=== PATIENT | female | born 1970 | race Caucasian/White ===

== ENCOUNTER → 2017-12-31 | Outpatient (CLI) | payer OTHER ==
[2015-10-30 17:20] VITALS: BP 149/69
[~2017-12-31] MED LIST: CETI10TA22 PO; HYDR-971 PO; IBUP800T19 PO; KETO10TA PO; METH4TAB PO; ONDA4TAB7 PO; PRED50TA PO
--- NOTE | 2017-12-31 12:56 | RAD ---
Two-view left wrist study Clinical indications: Left wrist pain. No known injury. Findings: No acute fracture or dislocation or osteolytic process is seen. Small marginal cysts or erosions of the medial aspect of the hamate bone and the proximal fifth metacarpal bone involving the fifth carpal metacarpal joint is seen. IMPRESSION: No acute fracture. Possible erosive arthropathy of the fifth carpal metacarpal joint. Clinical correlation is recommended..
== END | disposition home or self-care (01) ==
LOC: PMG 08:43
PROVIDERS: ATTEND Physician Assistant
DX: M25.532 Pain in left wrist (principal)
CPT/HCPCS: 73100

== ENCOUNTER 2018-06-26 12:02 | Emergency (ER) | payer OTHER ==
[~2018-06-26] VITALS: Ht 160 cm; Wt 63.5 kg
[2018-06-26 13:02] VITALS: BP 187/97
--- NOTE | 2018-06-26 13:16 | ED.ADGEN ---
Past History Past Medical History: Other Past Surgical History: Lumbar Laminectomy, Tubal ligation Alcohol Use: Occasionally Drug Use: None Adult General Chief Complaint Chief Complaint low back pain HPI HPI Patient is a 48-year-old female with history of prior back surgery who presents with sharp, intermittent lancinating, lower lumbar paravertebral pain. pain is worse with palpation and leg movement. No motor weakness or sensation. Denies history of fall or trauma. No bladder or bowel incontinence. No other acute symptoms or complaints. [] Review of Systems Review of Systems Review symptoms as per history of present illness. All other review symptoms are negative. All other systems were reviewed and found to be within normal limits, except as documented in this note. Allergies Allergies Allergies Coded Allergies Type Severity Reaction Last Updated Verified Penicillins Allergy Unknown THROAT CLOSES 09/20/15 Yes Physical Exam Physical Exam Constitutional: Well developed, well nourished, no acute distress, non-toxic appearance. [] HENT: Normocephalic, atraumatic, bilateral external ears normal, oropharynx moist, nose normal. [] Eyes: PERRLA, EOMI, conjunctiva normal, no discharge. [] Back: Back, right lower lumbar pain, tenderness, reproduces with palpation and rotation. [] Extremities: No tenderness, no edema. [] Neurologic: Alert and oriented X 3, lower extremities, no motor weakness or loss of sensation, reflexes 2+ and symmetric.. [] Psychologic: Affect normal, judgement normal, mood normal. [] EKG EKG [] Radiology/Procedures Radiology/Procedures [] Course & Med Decision Making Course & Med Decision Making Pertinent Labs and Imaging studies reviewed. (See chart for details) [Acute pain management declined in the emergency department. Patient prefers to follow-up with PCP for further management.] Final Impression Final Impression [#1 acute lumbar back pain] Dragon Disclaimer Dragon Disclaimer This electronic medical record was generated, in whole or in part, using a voice recognition dictation system. ARASH COOK DO Jun 26, 2018 13:16
== END 2018-06-26 13:02 | disposition home or self-care (01) ==
LOC: ER 12:02
DX: M54.5 Low back pain (principal); Z98.890 Other specified postprocedural states; Z88.0 Allergy status to penicillin
CPT/HCPCS: 99283

== ENCOUNTER → 2020-09-26 | Outpatient (CLI) | payer OTHER ==
[~2020-09-26] MED LIST changes: -CETI10TA22 PO; +CETI10TA74 PO; +HYDR-3165 PO; -HYDR-971 PO
--- NOTE | 2020-09-27 13:56 | RAD ---
DATE: 09/26/2020 9:34 AM EXAM: DIGITAL SCREEN BILAT W/CAD HISTORY: Screening. New baseline COMPARISON: None available. Bilateral full field craniocaudal and mediolateral oblique images were obtained using digital technique. This study was interpreted with the benefit of Computerized Aided Detection (CAD). FINDINGS: Breast Density: HETERO The breast parenchyma Is heterogeneously dense, which could reduce sensitivity of mammography. Breast parenchyma level C No suspicious masses, microcalcifications or architectural distortion is present to suggest malignancy in either breast. The visualized axillae are unremarkable. IMPRESSION: No mammographic evidence of malignancy. BI-RADS CATEGORY: 1 NEGATIVE RECOMMENDED FOLLOW-UP: 12M 12 MONTH FOLLOW-UP Annual screening mammography is recommended, unless clinically indicated sooner based on symptoms or change in physical exam. PQRS compliance statement: Patient information was entered into a reminder system with a target due date for the next mammogram. Mammography is a sensitive method for finding small breast cancers, but it does not detect them all and is not a substitute for careful clinical examination. A negative mammogram does not negate a clinically suspicious finding and should not result in delay in biopsying a clinically suspicious abnormality. "Our facility is accredited by the [employer] Mammography Program."
== END ==
LOC: MAMMO 09:24
PROVIDERS: ATTEND Physician Assistant Medical
DX: Z12.31 Encounter for screening mammogram for malignant neoplasm of breast (principal)
CPT/HCPCS: 77067

== ENCOUNTER → 2020-10-14 | Outpatient (CLI) | payer OTHER ==
[~2020-10-14] MED LIST changes: +METH36TA5 PO
== END ==
LOC: LAB 09:00
PROVIDERS: ATTEND Nurse Anesthetist, Certified Registered
DX: Z01.812 Encounter for preprocedural laboratory examination (principal); Z20.828 Contact with and (suspected) exposure to other viral communicable diseases
CPT/HCPCS: U0003

== ENCOUNTER → 2020-10-18 | Day surgery (SDC) | payer OTHER ==
[~2020-10-18] MED LIST changes: +IPRATRPIUM/ALBUTEROL 0.5/2.5MG 3 ML NEBU. NEB PRN; +IV RINGERS SOLUTION,LACTATED 1,000 ML IV SCH; +MIDAZOLAM HCL PF 2 MG/2 ML VIAL. IV ONE; +ONDANSETRON PF 4 MG/2 ML VIAL. IV PRN; +PROPOFOL 10,000 MCG/ML (20ML) VIAL IV ONE
[2020-10-18 12:37] VITALS: BP 150/76
== END | disposition home or self-care (01) ==
LOC: SURG 11:01
PROVIDERS: ATTEND Internal Medicine Gastroenterology
DX: Z12.11 Encounter for screening for malignant neoplasm of colon (principal); K57.30 Diverticulosis of large intestine without perforation or abscess without bleeding; K63.89 Other specified diseases of intestine; G47.00 Insomnia, unspecified; I10 Essential (primary) hypertension; F98.8 Other specified behavioral and emotional disorders with onset usually occurring in childhood and adolescence; Z98.51 Tubal ligation status; Z79.899 Other long term (current) drug therapy; Z98.890 Other specified postprocedural states; Z88.0 Allergy status to penicillin
CPT/HCPCS: 45378; J2704; J7120

== ENCOUNTER 2021-01-31 14:59 | Emergency (ER) | payer OTHER ==
[~2021-01-31] VITALS: Ht 160 cm; Wt 69.0 kg
[~2021-01-31 14:59] MED LIST changes: -IPRATRPIUM/ALBUTEROL 0.5/2.5MG 3 ML NEBU. NEB PRN; -IV RINGERS SOLUTION,LACTATED 1,000 ML IV SCH; -MIDAZOLAM HCL PF 2 MG/2 ML VIAL. IV ONE; -ONDANSETRON PF 4 MG/2 ML VIAL. IV PRN; -PROPOFOL 10,000 MCG/ML (20ML) VIAL IV ONE
--- NOTE | 2021-01-31 16:09 | EKG ---
[address] [address] Test Date: 2021-01-31 Test Time: 15:09:46 Pat Name: TRISTA VILLALOBOS Department: Room: Gender: F Cumulative Effects Analyst: MICHELLE : 1970 Requested By: MIRTA CÁRDENAS Order Number: [id number] Reading MD: Measurements Intervals [place] Rate: 67 P: ME: QRS: 38 QRSD: 88 T: 31 QT: 400 QTc: 426 Interpretive Statements IRREGULAR RHYTHM, NO P-WAVE FOUND OTHERWISE NORMAL ECG RI6.02 No previous ECG available for comparison
--- NOTE | 2021-01-31 16:29 | PHYS DOC ---
Past History Past Medical History: No Pertinent History, Other Past Surgical History: Lumbar Laminectomy, Tubal ligation, Other Alcohol Use: None Drug Use: None General Adult EDM: Chief Complaint: SHORTNESS OF BREATH HPI: HPI: Patient is a 51-year-old female who presents with shortness of breath after using her cricket this afternoon. Patient states that when she started using it is when she started feeling short of breath. Patient states she went outside a fracture and started feeling some tingling in her fingers. Patient decided to be seen in the emergency room she was worried if something were to happen she would be by herself. Denies chest pain. Review of Systems: Review of Systems: Constitutional: Denies fever or chills Eyes: Denies change in visual acuity HENT: Denies nasal congestion or sore throat Respiratory: Denies cough, reports shortness of breath Cardiovascular: Denies chest pain or edema GI: Denies abdominal pain, nausea, vomiting, bloody stools or diarrhea : Denies dysuria Musculoskeletal: Denies back pain or joint pain Integument: Denies rash Neurologic: Denies headache, focal weakness or sensory changes Endocrine: Denies polyuria or polydipsia Lymphatic: Denies swollen glands Psychiatric: Denies depression or anxiety Allergies: Allergies: Allergies Coded Allergies Type Severity Reaction Last Updated Verified Penicillins Allergy Unknown THROAT CLOSES 09/20/15 Yes Physical Exam: PE: Constitutional: Well developed, well nourished, no acute distress, non-toxic appearance. [] HENT: Normocephalic, atraumatic, bilateral external ears normal, oropharynx moist, no oral exudates, nose normal. [] Eyes: PERRLA, EOMI, conjunctiva normal, no discharge. [] Neck: Normal range of motion, no tenderness, supple, no stridor. [] Cardiovascular:Heart rate regular rhythm, no murmur [] Lungs & Thorax: Bilateral breath sounds clear to auscultation [] Abdomen: Bowel sounds normal, soft, no tenderness, no masses, no pulsatile masses. [] Skin: Warm, dry, no erythema, no rash. [] Back: No tenderness, no CVA tenderness. [] Extremities: No tenderness, no cyanosis, no clubbing, ROM intact, no edema. [] Neurologic: Alert and oriented X 3, normal motor function, normal sensory function, no focal deficits noted. [] Psychologic: Affect normal, judgement normal, mood normal. [] Current Patient Data: Vital Signs: Vital Signs Date Time Temp Pulse Resp B/P (MAP) Pulse Ox O2 Delivery O2 Flow Rate FiO2 01/31/21 15:05 97.9 75 20 176/87 (116) 100 EKG: EKG: [] Radiology/Procedures: Radiology/Procedures: [] Heart Score: C/O Chest Pain: No Risk Factors: Risk Factors: DM, Current or recent (<one month) smoker, HTN, HLP, family history of CAD, obesity. Risk Scores: Score 0 - 3: 2.5% MACE over next 6 weeks - Discharge Home Score 4 - 6: 20.3% MACE over next 6 weeks - Admit for Clinical Observation Score 7 - 10: 72.7% MACE over next 6 weeks - Early Invasive Strategies Course & Med Decision Making: Course & Med Decision Making Pertinent Labs and Imaging studies reviewed. (See chart for details) [] Patient is hemodynamically stable. O2 100% on room air. EKG heart rate 67 bpm. Normal sinus rhythm. Patient states that her symptoms have resolved and denies shortness of breath. Patient denies any pain or other complaints. Patient states "I do not want to run anymore test I feel fine". "I will make an appointment with Herlinda and see her in the morning". Patient instructed to return to the emergency room with worsening symptoms or concerns. Patient is able to ambulate at the emergency room on her own. Dragon Disclaimer: Cued Disclaimer: This electronic medical record was generated, in whole or in part, using a voice recognition dictation system. Departure Departure: Impression: Primary Impression: SOB (shortness of breath) Disposition: 01 DC HOME SELF CARE/HOMELESS Condition: GOOD Referrals: HERLINDA RESTREPO (PCP) Patient Instructions: Shortness of Breath, [id number] Additional Instructions: You are seen in the emergency room for shortness of breath. Your EKG was negative for any acute abnormalities. Your symptoms resolved once in the emergency room. Your initial blood pressure was 176/87. Your second blood pressure was 160/97. Please follow-up with your PCP in the morning for further evaluation. Return to the emergency room with worsening symptoms or concerns. EMERGENCY DEPARTMENT GENERAL DISCHARGE INSTRUCTIONS Thank you for coming to [facility] (ED) today and trusting us with you care. We trust that you had a positivie experience in our Emergency Department. If you wish to speak to the department management, you may call the director at [phone]. YOUR FOLLOW UP INSTRUCTIONS ARE FOLLOWS: 1. Do you have a private Doctor? If you do not have a private doctor, please ask for a resource list of physicians or clinics that may be able to assist you with follow up care. 2. The Emergency Physician has interpreted your x-rays. The X-Ray specialist will also review them. If there is a change in the findings, you will be notified in 48 hours when at all possible. 3. A lab test or culture has been done, your results will be reviewed and you will be notified if you need a change in treatment. ADDITIONAL INSTRUCTIONS AND INFORMATION: 1. Your care today has been supervised by a physician who is specially trained in emergency care. Many problems require more than one evaluation for a complete diagnosis and treatment. We recommend that you schedule your follow up appointment as recommended to ensure complete treatment of you illness or injury. If you are unable to obtain follow up care and continue to have a problem, or if your condition worsens, we recommend that you return to the ED. 2. We are not able to safely determine your condition over the phone nor are we able to give sound medical advice over the phone. For these safety reasons, if you call for medical advice we will ask you to come to the ED for further evaluation. 3. If you have any questions regarding these discharge instructions please call the ED at [phone]. SAFETY INFORMATION: In the interest of safety, wellness, and injury prevention; we encourage you to wear your sealbelt, if you smoke; quite smoking, and we encourage family to use a protective helmet for bicycling and other sporting events that present an increased risk for head injury. IF YOUR SYMPTOMS WORSEN OR NEW SYMPTOMS DEVELOP, OR YOU HAVE CONCERNS ABOUT YOUR CONDITION; OR IF YOUR CONDITION WORSENS WHILE YOU ARE WAITING FOR YOUR FOLLOW UP APPOINTMENT; EITHER CONTACT YOUR PRIMARY CARE DOCTOR, THE PHYSICIAN WHOSE NAME AND NUMBER YOU WERE GIVEN, OR RETURN TO THE ED IMMEDIATELY. MIRTA CÁRDENAS APRN Jan 31, 2021 16:29
[2021-01-31 17:00] VITALS: BP 164/81
== END 2021-01-31 17:05 | disposition home or self-care (01) ==
LOC: ER 14:59
DX: R06.02 Shortness of breath (principal); R20.2 Paresthesia of skin; Z98.890 Other specified postprocedural states; Z98.51 Tubal ligation status; Z88.0 Allergy status to penicillin
CPT/HCPCS: 93005; 99283

== ENCOUNTER → 2021-03-15 | Outpatient (CLI) | payer OTHER ==
--- NOTE | 2021-03-15 15:56 | RAD ---
EXAM: PA and Lateral Views of the Chest DATE: 03/15/2021 8:33 AM INDICATION: Reason: / Spl. Instructions: / History: COMPARISON: No Prior FINDINGS: The heart is not enlarged. Mediastinal and hilar contours are normal. No focal parenchymal airspace opacity. No pleural effusion or pneumothorax. IMPRESSION: 1. No radiographic evidence for acute cardiopulmonary process. Electronically signed by: Keny Darden MD (03/15/2021 3:54 PM) [id number]
== END ==
LOC: RAD 08:23
PROVIDERS: ATTEND Physician Assistant Medical
DX: R05 Cough (principal)
CPT/HCPCS: 71046

== ENCOUNTER 2022-01-04 12:56 | Emergency (ER) | payer OTHER ==
[~2022-01-04] VITALS: Ht 160 cm; Wt 69.0 kg
[2022-01-04] MEDS ORDERED: ORPHENADRINE CITRATE 60 MG/2 ML VIAL. IV ONE (13:30)
[2022-01-04] MEDS ORDERED: ONDANSETRON PF 4 MG/2 ML VIAL. IVP ONE (13:30)
[2022-01-04] MEDS ORDERED: MORPHINE SULFATE 4 MG/ML DISP.SYRIN. IV ONE (13:30)
--- NOTE | 2022-01-04 13:32 | PHYS DOC ---
Past History Past Medical History: No Pertinent History, Other Additional Past Medical Histor: chronic back pain, ADD Past Surgical History: Lumbar Laminectomy, Tubal ligation, Other Alcohol Use: Occasionally Drug Use: None General Adult EDM: Chief Complaint: BACK PAIN OR INJURY HPI: HPI: 51-year-old female presents via ambulance with right-sided low back/hip pain. The patient fell in the shower 2 days ago. She had pain in the right hip and low back area yesterday but was able to walk. Today the pain is worse and if she puts any weight on her right leg it makes her right low back and hip hurt severely. She denies any numbness, tingling, or altered sensation in her legs. She has had 3 low back surgeries where she has had disc revision of some kind. She does not have any plates or hardware. She denies any other injuries or complaints at this time. Review of Systems: Review of Systems: Constitutional: Denies fever or chills Eyes: Denies change in visual acuity HENT: Denies nasal congestion or sore throat Respiratory: Denies cough or shortness of breath Cardiovascular: Denies chest pain or edema GI: Denies abdominal pain, nausea, vomiting, bloody stools or diarrhea : Denies dysuria Musculoskeletal: Low/right hip pain Integument: Denies rash Neurologic: Denies headache, focal weakness or sensory changes Endocrine: Denies polyuria or polydipsia Lymphatic: Denies swollen glands Psychiatric: Denies depression or anxiety Allergies: Allergies: Allergies Coded Allergies Type Severity Reaction Last Updated Verified Penicillins Allergy Unknown THROAT CLOSES 09/20/15 Yes Physical Exam: PE: Constitutional: Well developed, well nourished, no acute distress, non-toxic appearance. [] HENT: Normocephalic, atraumatic, bilateral external ears normal, oropharynx moist, no oral exudates, nose normal. [] Eyes: PERRLA, EOMI, conjunctiva normal, no discharge. [] Neck: Normal range of motion, no tenderness, supple, no stridor. [] Cardiovascular: Heart rate regular rhythm, no murmur [] Lungs & Thorax: Bilateral breath sounds clear to auscultation [] Abdomen: Bowel sounds normal, soft, no tenderness, no masses, no pulsatile masses. [] Skin: Warm, dry, no erythema, no rash. [] Back: Tenderness over the right sacroiliac joint and right paraspinal lumbar muscles [] Extremities: No tenderness, no cyanosis, no clubbing, ROM intact, no edema. [] Neurologic: Alert and oriented X 3, normal motor function, normal sensory function, no focal deficits noted. [] Psychologic: Affect normal, judgement normal, mood normal. [] Current Patient Data: Vital Signs: Vital Signs Date Time Temp Pulse Resp B/P (MAP) Pulse Ox O2 Delivery O2 Flow Rate FiO2 01/04/22 13:05 98.6 74 18 143/94 (110) 100 Room Air EKG: EKG: [] Radiology/Procedures: Radiology/Procedures: [] Impressions: EXAM: Pelvis and right hip, 3 views. HISTORY: Pain. COMPARISON: None. FINDINGS: A frontal view of the pelvis and 2 views of the right hip are obtaine d. There is no fracture, dislocation or subluxation. There is mild degenerative subchondral cyst formation and marginal spurring involving the acetabula and femoral heads. There is degenerative change at the lumbosacral junction. IMPRESSION: Mild bilateral hip osteoarthritis. Electronically signed by: Bertha Haro MD (01/04/2022 2:38 PM) [id number] DICTATED AND SIGNED BY: BERTHA HARO MD DATE: 01/04/22 1437 CC: ARASH CHOWDARY DO; HERLINDA RESTREPO ~MTH0 0 Exam Date: 01/04/2022 1:39 PM XR LUMBAR SPINE 2-3V Indication: Reason: fall, hip/low back pain / Spl. Instructions: / History: . FINDINGS/ IMPRESSION: Anatomic alignment is maintained without spondylolisthesis. The vertebral body heights are maintained without evidence of compression fracture. Moderate disc space narrowing seen at L5-S1, with mild disc space narrowing at other levels. Small osteophytes and moderate facet joint arthropathy are seen at multiple levels. Degenerative changes are seen in the SI joints. The visualized soft tissues are within normal limits. Electronically signed by: Robinson Bynum MD (01/04/2022 2:48 PM) [id number] DICTATED AND SIGNED BY: ROBINSON BYNUM MD DATE: 01/04/22 1447 CC: ARASH CHOWDARY DO; HERLINDA RESTREPO ~MTH0 0 Heart Score: C/O Chest Pain: N/A Risk Factors: Risk Factors: DM, Current or recent (<one month) smoker, HTN, HLP, family history of CAD, obesity. Risk Scores: Score 0 - 3: 2.5% MACE over next 6 weeks - Discharge Home Score 4 - 6: 20.3% MACE over next 6 weeks - Admit for Clinical Observation Score 7 - 10: 72.7% MACE over next 6 weeks - Early Invasive Strategies Course & Med Decision Making: Course & Med Decision Making Pertinent Labs and Imaging studies reviewed. (See chart for details) The patient's x-rays are negative for acute findings or fracture. This appears to be sacroiliac joint pain. I have treated her with Norflex and pain medication in the emergency room. I will further treat her with steroids and discharged with a prescription for Flexeril and prednisone. She is stable for discharge at this time. [] Dragon Disclaimer: Dragon Disclaimer: This electronic medical record was generated, in whole or in part, using a voice recognition dictation system. Departure Departure: Impression: Primary Impression: Pain of right sacroiliac joint Disposition: HOME / SELF CARE / HOMELESS Condition: STABLE Referrals: HERLINDA RESTREPO (PCP) Patient Instructions: Sacroiliac Joint Dysfunction Scripts Prednisone (PREDNISONE) 50 Mg Tablet 1 TAB PO DAILY for sacroiliac pain, #5 TAB Prov: ARASH CHOWDARY DO 01/04/22 Hydrocodone/Acetaminophen (Hydrocodone-Acetamin 5-325 mg) 1 Each Tablet 1 EACH PO Q4-6HRS PRN for PAIN, #10 TAB Prov: ARASH CHOWDARY DO 01/04/22 Cyclobenzaprine Hcl (CYCLOBENZAPRINE HCL) 10 Mg Tablet 1 TAB PO TID PRN for MUSCLE SPASMS, #30 TAB Prov: ARASH CHOWDARY DO 01/04/22 ARASH CHOWDARY DO Jan 04, 2022 13:32
[2022-01-04 13:56] LABS: BASO % 1 % (0-3); EOS % 1 % (0-3); HEMATOCRIT 41.8 % (36.0-47.0); LYMPH # 1.4 x10^3/uL (1.0-4.8); LYMPH % 17 % (24-48); MEAN CORPUSCULAR HEMOGLOBIN 30 pg (25-35); MEAN CORPUSCULAR HGB CONC 34 g/dL (31-37); MEAN CORPUSCULAR VOLUME 90 fL (79-100); MONO % 13 % (0-9); NEUT # 5.6 x10^3uL (1.8-7.7); NEUT % 69 % (31-73); PLATELET COUNT 222 x10^3/uL (140-400); RED BLOOD COUNT 4.65 x10^6/uL (3.50-5.40); RED CELL DISTRIBUTION WIDTH 13.5 % (11.5-14.5); WHITE BLOOD COUNT 8.2 x10^3/uL (4.0-11.0)
[2022-01-04 14:04] LABS: CALCIUM 8.7 mg/dL (8.5-10.1); CREATININE 0.6 mg/dL (0.6-1.0); GFR 104.6; POTASSIUM 3.7 mmol/L (3.5-5.1)
[2022-01-04 14:10] LABS: ALBUMIN 3.5 g/dL (3.4-5.0); ALBUMIN/GLOBULIN RATIO 1.2 (1.0-1.7); TOTAL BILIRUBIN 0.5 mg/dL (0.2-1.0); TOTAL PROTEIN 6.4 g/dL (6.4-8.2)
--- NOTE | 2022-01-04 14:40 | RAD ---
EXAM: Pelvis and right hip, 3 views. HISTORY: Pain. COMPARISON: None. FINDINGS: A frontal view of the pelvis and 2 views of the right hip are obtained. There is no fractur e, dislocation or subluxation. There is mild degenerative subchondral cyst formation and marginal spu rring involving the acetabula and femoral heads. There is degenerative change at the lumbosacral junc tion. IMPRESSION: Mild bilateral hip osteoarthritis. Electronically signed by: Bertha Hunt MD (01/04/2022 2:38 PM) [id number]
--- NOTE | 2022-01-04 14:51 | RAD ---
Exam Date: 01/04/2022 1:39 PM XR LUMBAR SPINE 2-3V Indication: Reason: fall, hip/low back pain / Spl. Instructions: / History: . FINDINGS/ IMPRESSION: Anatomic alignment is maintained without spondylolisthesis. The vertebral body heights are maintaine d without evidence of compression fracture. Moderate disc space narrowing seen at L5-S1, with mild d isc space narrowing at other levels. Small osteophytes and moderate facet joint arthropathy are seen at multiple levels. Degenerative changes are seen in the SI joints. The visualized soft tissues are within normal limits. Electronically signed by: Stepan Bynum MD (01/04/2022 2:48 PM) [facility]EXTER
[2022-01-04 15:00] VITALS: BP 139/73
[2022-01-04 15:02] LABS: BACTERIA,URINE 0 /HPF (0-FEW); CLARITY,URINE CLEAR; COLOR,URINE YELLOW; GLUCOSE,URINE NEG (NEG); NITRITE,URINE NEG (NEG); SQUAMOUS EPITHELIAL CELL,UR FEW /LPF; UROBILINOGEN,URINE 0.2 mg/dL (0.2 mg/dL)
[2022-01-04] MEDS ORDERED: HYDR-2759 PO (15:29)
[2022-01-04] MEDS ORDERED: PRED50TA PO (15:29)
[2022-01-04] MEDS ORDERED: CYCL10TA19 PO (15:29)
[2022-01-04] MEDS ORDERED: methylPREDNISolone SOD SUCC PF 125 MG/2 ML VIAL. IV ONE (15:30)
== END 2022-01-04 16:01 | disposition home or self-care (01) ==
LOC: ER 12:56
DX: M53.3 Sacrococcygeal disorders, not elsewhere classified (principal); M54.59 Other low back pain; M25.551 Pain in right hip; G89.29 Other chronic pain; Z88.0 Allergy status to penicillin
CPT/HCPCS: 36415; 72100; 73502; 80053; 81001; 85025; 87086; 96374; 96375; 99284; J2270; J2360; J2405; J2930

== ENCOUNTER 2022-01-09 07:40 | Emergency (ER) | payer OTHER ==
[~2022-01-09] VITALS: Ht 160 cm; Wt 69.0 kg
[~2022-01-09 07:40] MED LIST changes: +CYCL10TA19 PO; +HYDR-2759 PO
[2022-01-09 07:49] VITALS: BP 126/75
--- NOTE | 2022-01-09 07:49 | PHYS DOC ---
Past History Past Medical History: No Pertinent History, Other Additional Past Medical Histor: chronic back pain, ADD Past Surgical History: Lumbar Laminectomy, Tubal ligation, Other Alcohol Use: Occasionally Drug Use: None General Adult EDM: Chief Complaint: LOWER BACK PAIN OR INJURY HPI: HPI: Patient is a 51 year old female who presents with low back pain. She was in this ER on the for the same. She states about a week ago she fell or slipped and strained her low back. She complained of pain in the right side of the low back and right SI joint area at that time. Today, she comes back to the ER with muscle spasm and severe pain on the left and some of her pain does radiate down the left leg. She has no weakness but does have severe pain when she tries to move the leg. No new injury. No fever. No saddle anesthesia. No difficulties with elimination. 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 Review of Systems: Review of Systems: Constitutional: Denies fever or chills Eyes: Denies change in visual acuity HENT: Denies nasal congestion or sore throat Respiratory: Denies cough or shortness of breath Cardiovascular: Denies chest pain or edema GI: Denies abdominal pain, nausea, vomiting, bloody stools or diarrhea : Denies dysuria Musculoskeletal: as documented in HPI Integument: Denies rash Neurologic: Denies headache, focal weakness or sensory changes Endocrine: Denies polyuria or polydipsia Lymphatic: Denies swollen glands Psychiatric: Denies depression or anxiety Allergies: Allergies: Allergies Coded Allergies Type Severity Reaction Last Updated Verified Penicillins Allergy Unknown THROAT CLOSES 09/20/15 Yes Physical Exam: PE: Constitutional: Well developed, well nourished, significant distress due to pain she has antalgic movements and antalgic gait HENT: Normocephalic, atraumatic, bilateral external ears normal, oropharynx moist Eyes: PERRLA, EOMI, conjunctiva normal, Neck: Normal range of motion Cardiovascular:Heart rate regular rhythm, no murmur Lungs & Thorax: Normal respiratory effort Abdomen: Bowel sounds normal Skin: Warm, dry Back: No midline tenderness Extremities: No trauma or edema Neurologic: Alert and oriented X 3, 5/5 motor strength bilateral lower extremities. 2/4 DTRs at the patellar and Achilles levels. Sensation light touch intact over all dermatomes of the lower extremity. EKG: EKG: [] Radiology/Procedures: Radiology/Procedures: [] Heart Score: C/O Chest Pain: N/A Risk Factors: Risk Factors: DM, Current or recent (<one month) smoker, HTN, HLP, family history of CAD, obesity. Risk Scores: Score 0 - 3: 2.5% MACE over next 6 weeks - Discharge Home Score 4 - 6: 20.3% MACE over next 6 weeks - Admit for Clinical Observation Score 7 - 10: 72.7% MACE over next 6 weeks - Early Invasive Strategies Course & Med Decision Making: Course & Med Decision Making Pertinent Labs and Imaging studies reviewed. (See chart for details) Patient is examined on arrival to her room. She has no red flags on her HPI or physical examination. Her symptoms seem consistent with acute flare of low back pain and she does have pain that radiates down the left leg and possibly some sciatica. She has no weakness however. No fevers reported. This is her second ER visit in the last week for a similar presentation. In the ER, she was initially given a p.o. Valium and morphine. These did not help her pain. Following that, she was given intramuscular Dilaudid which she states did resolve her pain symptoms and she was requesting discharge home. Discharged home and recommended to continue to use Flexeril and NSAID of choice at home. She is given some Dilaudid p.o. to use at home as well and I recommend she follow-up with her primary care doctor to seek MRI or additional evaluation if her symptoms did not improve in the next 1 to 2 weeks. Sanket Disclaimer: Sanket Disclaimer: This electronic medical record was generated, in whole or in part, using a voice recognition dictation system. Departure Departure: Impression: Primary Impression: Acute low back pain Disposition: HOME / SELF CARE / HOMELESS Condition: IMPROVED Referrals: HERLINDA RESTREPO (PCP) Patient Instructions: Back Pain in OWEN RICHMOND DO Jan 09, 2022 07:49
[2022-01-09] MEDS ORDERED: diazePAM 5 MG TABLET. PO ONE (08:15)
[2022-01-09] MEDS ORDERED: IBUPROFEN 800 MG TABLET. PO ONE (08:15)
[2022-01-09] MEDS ORDERED: MORPHINE SULFATE 4 MG/ML DISP.SYRIN. IM ONE (08:15)
[2022-01-09] MEDS ORDERED: HYDROmorphone PF 2 MG/ML VIAL IM ONE (09:15)
[2022-01-09] MEDS ORDERED: HYDR4TAB45 PO ×3 (10:01→10:09)
== END 2022-01-09 10:20 | disposition home or self-care (01) ==
LOC: ER 07:40
DX: M54.59 Other low back pain (principal); M62.830 Muscle spasm of back; G89.29 Other chronic pain; Z98.890 Other specified postprocedural states; Z88.0 Allergy status to penicillin
CPT/HCPCS: 96372; 99284; J1170; J2270